=== PATIENT | male | born 1990 | race Caucasian/White ===

== ENCOUNTER 2021-05-10 20:47 | Emergency (ER) | payer OTHER, SELFPAY ==
[2021-05-10 20:50] VITALS: BP 142/89; PULSE 89; RESP 18; TEMP 36.6; O2SAT 100
--- NOTE | 2021-05-10 21:55 | ED.WOUNDLAC ---
HPI - Wound/Laceration General Chief Complaint: Wound/Laceration Stated Complaint: Dog bite, wound Time Seen by Provider: 05/10/21 20:59 Source: patient Mode of arrival: ambulatory Limitations: no limitations History of Present Illness HPI narrative: This is a 30 year old male that presents to the ER for a dog bite sustained just prior to arrival. Reports he is not up to date on tetanus. His dog is up to date on vaccinations. Reports a laceration to the left 3rd finger. Denies decreased ROM or numbness. Related Data Allergies Allergy/AdvReac Type Severity Reaction Status Date / Time No Known Allergies Allergy Verified 05/10/21 20:48 Review of Systems Review of Systems: CONSTITUTIONAL: Denies fever SKIN: Reports laceration MUSCULOSKELETAL: Denies joint pain, or myalgia. NEUROLOGIC: Denies numbness All systems reviewed & are unremarkable except as noted in HPI and below PMFSH Past Medical History Medical History (Updated 05/10/21 @ 22:09 by Vicky Roa PA-C) No active medical problems Social History Social History (Updated 05/10/21 @ 22:01 by Vicky Roa PA-C) Smoking status: Never smoker Exam Narrative: GENERAL: Well-appearing, well-nourished, and in no acute distress. HEAD: Normocephalic, atraumatic. EYES: EOMI. EXTREMITIES: Normal range of motion. No edema or obvious deformity. Left third finger with superficial laceration to the distal phalanx. Normal radial pulses SKIN: Warm, dry, no rash. NEURO: No focal deficits. Alert and oriented x3. PSYCH: Normal mood and affect Course Vital Signs Vital signs: Vital Signs Temperature 97.9 F 05/10/21 20:50 Pulse Rate 89 05/10/21 20:50 Respiratory Rate 18 05/10/21 20:50 Blood Pressure 142/89 H 05/10/21 20:50 Pulse Oximetry 100 05/10/21 20:50 Temperature 97.9 F 05/10/21 20:50 Pulse Rate 89 05/10/21 20:50 Respiratory Rate 18 05/10/21 20:50 Blood Pressure 142/89 H 05/10/21 20:50 Pulse Oximetry 100 05/10/21 20:50 Procedures Laceration Laceration 1: Date: 05/10/21 Time: 22:06 Site: hand Side (If applicable): left Size (cm): 0.5 Description: irregular Depth: simple, single layer Pre-repair: irrigated extensively ====== Skin Level ====== ====== Subcutaneous Layer ====== ====== Muscle Layer ====== ====== Tendon Layer ====== MDM - Wound/Laceration MDM Narrative Medical decision making narrative: Patient presents to the ER for laceration to the left third finger sustained by dog bite. Wound was thoroughly irrigated and bandaged. Patient was updated on tetanus. Will be started on oral antibiotics. He is to follow up with primary care doctor. He was given warnings to return to the ER Critical Care Time Critical Care Time Critical Care Time: No Discharge Plan Discharge Clinical Impression: Dog bite Qualifiers: Encounter type: initial encounter Qualified Code(s): W54.0XXA - Bitten by dog, initial encounter Patient Disposition: Home, Self-Care Condition: Stable Instructions: Antibiotic Form, Animal Bite (ED) Additional Instructions: Return to the emergency department if you experience fever, redness or swelling of your wound, abnormal drainage from your wound, or any other symptoms that are concerning to you. Take oral antibiotic as prescribed. Apply antibiotic ointment daily. Do not soak the wound. Clean with mild soap and water daily Follow-up with your primary care doctor for wound check Prescriptions: New amoxicillin-pot clavulanate 875-125 mg tablet 1 tablet PO Q12H 5 Days Qty: 10 RF: 0 Follow-up/Referrals: UNKNOWN,DOCTOR [Primary Care Provider] - 1 Week
[2021-05-10] MEDS: TETANUS,DIPHTHERIA,AC PERTUSSIS ADULT (0.5 ML) BOOSTRIX IM (21:56)
[2021-05-10] MEDS: AMOXICILLIN/CLAVULANATE K 875-125 MG TAB 1 TABLET PO (22:48)
[2021-05-10 23:38] VITALS: PULSE 76; RESP 18; O2SAT 98
== END 2021-05-10 23:42 | disposition home or self-care (01) ==
PROVIDERS: Emergency Provider Emergency Medicine
DX: S61.253A Open bite of left middle finger without damage to nail, initial encounter (principal); W54.0XXA Bitten by dog, initial encounter; Z23 Encounter for immunization
CPT/HCPCS: 90471; 90715; 99283; A9270

== ENCOUNTER 2022-02-11 14:50 | Emergency (ER) | payer OTHER, SELFPAY ==
[2022-02-11 15:12] VITALS: BP 124/71; PULSE 79; RESP 16; TEMP 36.7; O2SAT 99
--- NOTE | 2022-02-11 16:11 | ED.SKABFB ---
HPI - Skin/Abscess/Foreign Bdy General Chief complaint: Skin/Abscess/Foreign Body Stated complaint: infection left 1st digit toe Source: patient, RN notes reviewed and old records reviewed Mode of arrival: ambulatory Limitations: no limitations History of Present Illness HPI narrative: 31 YEAR OLD FEMALE WHO PRESENTS TO [facility] WITH COMPLAINTS OF REDNESS AND SOME SWELLING OF TISSUE TO LEFT GREAT TOE LATERAL ASPECT OF TOENAIL WITH SOME YELLOWISH DRAINAGE NOTED FOR THE PAST 2 DAYS.PATIENT STATES THAT HE DID SOAK IT IN WARM ANTIBACTERIAL SOAPY WATER TODAY. PATIENT DENIES ANY ACUTE PAIN TO SKIN, DENIES ANY FEVERS, CHILLS, OR SWEATS. MD complaint: other (INGROWN TOENAIL) Onset (ago): day(s) (2) Tetanus up to date: yes Location: L foot (LEFT GREAT TOE) Severity scale (1-10): 4 Treatments prior to arrival: other (SOAKED IN ANTIBACTERIAL SOAP AND WARM WATER) Related Data Allergies Allergy/AdvReac Type Severity Reaction Status Date / Time No Known Allergies Allergy Verified 02/11/22 15:11 Review of Systems Review of Systems: CONSTITUTIONAL: Denies fever, chills, or sweats. EYES: Denies visual changes, redness, or discharge. ENT: Denies rhinorrhea, congestion, sore throat, or otalgia. CARDIOVASCULAR: Denies chest pain, palpitations, or edema. RESPIRATORY: Denies cough or dyspnea. GASTROINTESTINAL: Denies abdominal pain, nausea, vomiting, or diarrhea. GENITOURINARY: Denies dysuria or hematuria. SKIN: Denies rash or itching.POSITIVE FOR SOME REDNESS LATERAL ASPECT OF LEFT GREAT TOENAIL YELLOWISH DRAINAGE REPORTED MUSCULOSKELETAL: Denies back pain, joint pain, or myalgia. NEUROLOGIC: Denies headache, numbness, or weakness. PSYCHIATRIC: Denies anxiety or depression. All systems reviewed & are unremarkable except as noted in HPI and below PMFSH Past Medical History Medical History (Updated 02/12/22 @ 00:00 by Tarsha Ely) No active medical problems Surgical History Surgical History (Updated 02/13/22 @ 14:47 by Nicci Wen NP) History of placement of ear tubes History of tonsillectomy Social History Social History (Updated 02/13/22 @ 14:47 by Nicci Wen NP) Smoking status: Never smoker Alcohol intake: never Substance use: never Living arrangements: with family Gender identity (if verbalized by the patient): Male Comments At time of signature, agree with nursing past medical, surgical, social and family history. There is no relevant family history pertinent to the presenting complaint Exam Narrative: GENERAL: Well-appearing, well-nourished, and in no acute distress. HEAD: Normocephalic, atraumatic. EYES: PERRLA and EOMI. ENT: Nares clear, no rhinorrhea or epistaxis. Mucous membranes moist.tm'S NORMAL WITH GOOD LIGHT REFLEX, THROAT PINK WITH NO LESIONS OR SWELLING. NECK: Supple.NO LYMPHADENOPATHY CHEST: Clear to auscultation. No respiratory distress.SAO2 99% ON ROOM AIR HEART: Regular rate and rhythm. No murmur heard. Normal peripheral pulses. ABDOMEN: Soft, nontender, nondistended, normal active bowel sounds. EXTREMITIES: Normal range of motion. No edema. SKIN: Warm, dry, no rash.MINIMAL SWELLING WITH SOME REDNESS TO LATERAL ASPECT OF LEFT LATERAL GREAT TOENAIL, NO DRAINAGE NOTED WITH SOME TENDERNESS TO AREA NEURO: No focal deficits. Alert and oriented x3. Course Course Level of Care: Express Care Visit Vital Signs Vital signs: Vital Signs Temperature 36.7 C 02/11/22 15:12 Pulse Rate 79 02/11/22 15:12 Respiratory Rate 16 02/11/22 15:12 Blood Pressure 124/71 02/11/22 15:12 Pulse Oximetry 99 02/11/22 15:12 Oxygen Delivery Room Air 02/11/22 15:12 Temperature 36.7 C 02/11/22 15:12 Pulse Rate 79 02/11/22 15:12 Respiratory Rate 16 02/11/22 15:12 Blood Pressure 124/71 02/11/22 15:12 Pulse Oximetry 99 02/11/22 15:12 Oxygen Delivery Room Air 02/11/22 15:12 MDM - Skin/Abscess/Foreign Bdy Differential Diagnosis Differential diagnosis: Likel
--- NOTE | 2022-02-11 16:28 | ED.SKABFB ---
HPI - Skin/Abscess/Foreign Bdy General Chief complaint: Skin/Abscess/Foreign Body Stated complaint: infection left 1st digit toe Source: patient, RN notes reviewed and old records reviewed Mode of arrival: ambulatory Limitations: no limitations Related Data Home Medications Medication Instructions Recorded Confirmed No Home Medications 02/11/22 02/11/22 Allergies Allergy/AdvReac Type Severity Reaction Status Date / Time No Known Allergies Allergy Verified 02/11/22 15:11 Review of Systems Review of Systems: CONSTITUTIONAL: Denies fever, chills, or sweats. EYES: Denies visual changes, redness, or discharge. ENT: Denies rhinorrhea, congestion, sore throat, or otalgia. CARDIOVASCULAR: Denies chest pain, palpitations, or edema. RESPIRATORY: Denies cough or dyspnea. GASTROINTESTINAL: Denies abdominal pain, nausea, vomiting, or diarrhea. GENITOURINARY: Denies dysuria or hematuria. SKIN: Denies rash or itching. MUSCULOSKELETAL: Denies back pain, joint pain, or myalgia. NEUROLOGIC: Denies headache, numbness, or weakness. PSYCHIATRIC: Denies anxiety or depression. All systems reviewed & are unremarkable except as noted in HPI and below PMFSH Past Medical History Medical History No active medical problems Social History Social History Smoking status: Never smoker Comments At time of signature, agree with nursing past medical, surgical, social and family history. There is no relevant family history pertinent to the presenting complaint Exam Narrative: GENERAL: Well-appearing, well-nourished, and in no acute distress. HEAD: Normocephalic, atraumatic. EYES: PERRLA and EOMI. ENT: Nares clear, no rhinorrhea or epistaxis. Mucous membranes moist. NECK: Supple. CHEST: Clear to auscultation. No respiratory distress. HEART: Regular rate and rhythm. No murmur heard. Normal peripheral pulses. ABDOMEN: Soft, nontender, nondistended, normal active bowel sounds. EXTREMITIES: Normal range of motion. No edema. SKIN: Warm, dry, no rash. NEURO: No focal deficits. Alert and oriented x3. Course Course Level of Care: Express Care Visit Vital Signs Vital signs: Vital Signs Temperature 36.7 C 02/11/22 15:12 Pulse Rate 79 02/11/22 15:12 Respiratory Rate 16 02/11/22 15:12 Blood Pressure 124/71 02/11/22 15:12 Pulse Oximetry 99 02/11/22 15:12 Oxygen Delivery Room Air 02/11/22 15:12 Temperature 36.7 C 02/11/22 15:12 Pulse Rate 79 02/11/22 15:12 Respiratory Rate 16 02/11/22 15:12 Blood Pressure 124/71 02/11/22 15:12 Pulse Oximetry 99 02/11/22 15:12 Oxygen Delivery Room Air 02/11/22 15:12 MDM - Skin/Abscess/Foreign Bdy Differential Diagnosis Differential diagnosis: Likely abscess of skin or subcutaneous tissue, cellulitis and other (Ingrown toenail first toe nail) Critical Care Time Critical Care Time Critical Care Time: No Discharge Plan Discharge Clinical Impression: Ingrown left big toenail Patient Disposition: Home, Self-Care Condition: Stable Instructions: Antibiotic Form, Ingrown Nail (ED) Additional Instructions: Apply Bactroban ointment to left great toe soak left great toe in warm soapy water using antibacterial soap watch for increasing infection--redness, swelling, drainage Tylenol or ibuprofen for any fever pain follow up with PCP in 7-10 days for a wound check recheck if develop fever, chills, increasing symptom Go to the ER if your symptoms become worse of if ANY new symptoms develop If your symptoms persist, change or worsen significantly before you can contact your personal physician then please, without delay, go to the emergency department for further evaluation. Follow-up with PCP in 7-10 days or sooner if needed Prescriptions: No Action No Home Medications Follow-up/Referrals: PHYSICIAN,[facility] [Primary Care Pr
== END 2022-02-11 16:45 | disposition home or self-care (01) ==
PROVIDERS: Emergency Provider Registered Nurse; Referring Provider Emergency Medicine
DX: L60.0 Ingrowing nail (principal)
CPT/HCPCS: 99213; G0463

== ENCOUNTER 2024-07-17 12:21 | Outpatient (CLI) | payer OTHER, SELFPAY ==
--- NOTE | ~2024-07-17 | XR_ITS ---
EXAMINATION: XR abdomen/kub 1V DATE: 07/17/2024 12:31 INDICATION: Right lower quadrant abdominal pain. TECHNIQUE: A supine view of the abdomen on 2 radiographs was obtained. COMPARISON: None. FINDINGS: There are no dilated loops of bowel. There is a large volume of stool in the colon. IMPRESSION: 1. Nonobstructive bowel gas pattern. Reviewed, dictated and finalized at location A. [employer]
== END 2024-07-17 12:22 | disposition home or self-care (01) ==
LOC: MICIMG 12:23
PROVIDERS: PCP Family Medicine; Visit Provider Family Medicine
DX: R10.31 Right lower quadrant pain (principal)
CPT/HCPCS: 74018